=== PATIENT | female | born 1945 | race Caucasian/White ===

== ENCOUNTER → 2018-05-06 | Outpatient (CLI) | payer MEDICARE ==
[~2018-05-06] MED LIST: AMIO200T44 PO; AMLO5TAB7 PO; ATOR20TA65 PO; Atenolol PO; BENA20TA10 PO; IOHEXOL-350 50ML VIAL IV ONE; IOHEXOL-350 75 ML VIAL IV ONE; LATA7.5D OP; MULT1TAB70 PO; TIMO1DRO2 OP; WARF1TAB46 PO; WARF2.5T47 PO
== END | disposition home or self-care (01) ==
LOC: RAH 08:32
PROVIDERS: ATTEND Internal Medicine Cardiovascular Disease
DX: I73.9 Peripheral vascular disease, unspecified (principal); I87.2 Venous insufficiency (chronic) (peripheral); I70.1 Atherosclerosis of renal artery; I70.0 Atherosclerosis of aorta; J90 Pleural effusion, not elsewhere classified; K76.89 Other specified diseases of liver; M85.88 Other specified disorders of bone density and structure, other site; J98.11 Atelectasis
CPT/HCPCS: 75635; Q9967 ×3

== ENCOUNTER 2018-05-24 01:00 | Inpatient (IN) | payer MEDICARE ==
[~2018-05-24] VITALS: Ht 160 cm; Wt 56.9 kg
[~2018-05-24 01:00] MED LIST changes: -IOHEXOL-350 50ML VIAL IV ONE; -IOHEXOL-350 75 ML VIAL IV ONE
[2018-05-24] MEDS ORDERED: LIDOCAINE 1%-EPI 1:100,000 20 ML VIAL IJ ONE (01:04)
[2018-05-24] MEDS ORDERED: IOHEXOL 350 MG/ML 100ML INFUS..BTL IV ONE (01:21)
[2018-05-24 01:36] LABS: BASOPHILS % (AUTO) 0.5 % (0.0-5.0); EOSINOPHILS % (AUTO) 0.8 % (0.0-8.0); HEMATOCRIT 24.5 % (36-48); LYMPHOCYTES % (AUTO) 7.9 % (21.0-51.0); MEAN CORPUSCULAR HGB CONC 33.6 g/dL (32.0-36.0); MEAN CORPUSCULAR VOLUME 92.3 fL (79-99); MONOCYTES % (AUTO) 12.7 % (3.0-13.0); NEUTROPHILS % (AUTO) 78.1 % (40.0-77.0); PLATELET COUNT (AUTO) 245 K/uL (130-400); RED BLOOD CELL COUNT(AUTO) 2.66 MIL/uL (4.00-5.50); RED CELL DISTRIBUTION WIDTH 13.3 % (11.0-15.5); WHITE BLOOD COUNT (AUTO) 15.1 K/uL (4.8-10.8)
[2018-05-24 01:46] LABS: POTASSIUM 3.3 mmol/L (3.5-5.1)
[2018-05-24 01:50] LABS: ALBUMIN 2.3 g/dL (3.5-5.0); BILIRUBIN,TOTAL 0.2 mg/dL (0.2-1.0); TOTAL PROTEIN, SERUM 5.3 g/dL (6.0-8.3)
[2018-05-24 01:59] LABS: PARTIAL THROMBOPLASTIN TIME 59.4 SEC (26.3-35.5)
[2018-05-24 02:10] LABS: INR > 7.00 (0.85-1.15); PROTHROMBIN TIME > 63.0 SEC (9.6-11.6)
[2018-05-24] MEDS ORDERED: PHYTONADIONE 10 MG/1 ML AMP ONE (02:38)
[2018-05-24 03:43] VITALS: BP 156/71
[2018-05-24] MEDS ORDERED: ONDANSETRON HCL 4 MG/2 ML VIAL IVP PRN ×2 (04:00→13:30)
[2018-05-24] MEDS ORDERED: PROMETHAZINE/CODEINE 6.25-10MG/5ML CUP PO PRN (04:00)
[2018-05-24] MEDS ORDERED: ACETAMINOPHEN 325 MG TAB PO PRN ×2 (04:00)
[2018-05-24] MEDS ORDERED: AZITHROMYCIN 500MG+NS 250ML 250 ML IV SCH (04:00)
[2018-05-24] MEDS ORDERED: SODIUM CHLORIDE 0.9% 1000ML 1,000 ML IV SCH (04:00)
[2018-05-24] MEDS ORDERED: DIAZEPAM 5 MG TABLET PO PRN (04:00)
[2018-05-24] MEDS ORDERED: TRAZ-185 PO (04:38)
[2018-05-24] MEDS ORDERED: LIDO700A30 TD (04:38)
[2018-05-24] MEDS ORDERED: FURO20TA4 PO (04:38)
[2018-05-24 04:56] LABS: APPEARANCE,URINE Clear (CLEAR); BILIRUBIN,URINE Negative (NEGATIVE); COLOR,URINE Yellow (YELLOW); GLUCOSE, URINE (UA) Negative (NEGATIVE); KETONES,URINE Negative (NEGATIVE); LEUKOCYTE ESTERASE ,URINE Trace (NEGATIVE); NITRATE,URINE Negative (NEGATIVE); OCCULT BLOOD,URINE Negative (NEGATIVE); PH,URINE 6.5 (5.0-8.0); PROTEIN,URINE Negative (NEGATIVE); UROBILINOGEN,URINE 0.2 mg/dL (0.2-1.0)
[2018-05-24] MEDS ORDERED: MORPHINE SULFATE 2 MG/ML 1ML SYG IVP PRN (05:30)
[2018-05-24] MEDS ORDERED: ONDANSETRON HCL MDV 20ML 2 MG/ML VIAL IVP PRN (05:30)
[2018-05-24 05:44] LABS: BACTERIA,URINE Rare /HPF (None Seen); RBC,URINE None Seen /HPF (0-1)
[2018-05-24 05:45] LABS: SQUAMOUS EPITHELIAL CELL,UR 0-2 /HPF (0-2)
[2018-05-24] MEDS: LACTATED RINGERS 1000ML 1,000 ML IV SCH ×2 (05:50→14:50)
[2018-05-24] MEDS: ACETAMINOPHEN-CODEINE 300/30MG TAB PO PRN ×2 (05:51→18:18)
[2018-05-24] MEDS ORDERED: IPRATROPIUM/ALBUTEROL SULFATE 3 ML SOLUTION IH SCH (06:00)
[2018-05-24 06:42] LABS: HEMATOCRIT 31.8 % (36-48); MEAN CORPUSCULAR HEMOGLOBIN 31.6 pg (27.0-33.0); MEAN CORPUSCULAR HGB CONC 35.1 g/dL (32.0-36.0); MEAN CORPUSCULAR VOLUME 90.2 fL (79-99); PLATELET COUNT (AUTO) 190 K/uL (130-400); RED BLOOD CELL COUNT(AUTO) 3.52 MIL/uL (4.00-5.50); RED CELL DISTRIBUTION WIDTH 13.8 % (11.0-15.5); WHITE BLOOD COUNT (AUTO) 10.3 K/uL (4.8-10.8)
[2018-05-24 06:47] LABS: CREATININE 0.9 mg/dL (0.5-1.5); POTASSIUM 3.1 mmol/L (3.5-5.1)
[2018-05-24] MEDS ORDERED: WARF2.5T85 PO (06:49)
[2018-05-24] MEDS ORDERED: AMLO5TAB7 PO (06:54)
[2018-05-24] MEDS ORDERED: LATA7.5D OD (06:54)
[2018-05-24] MEDS ORDERED: ATEN50TA PO (06:54)
[2018-05-24 07:00] VITALS: BP 104/44
[2018-05-24 07:54] LABS: INR 5.96 (0.85-1.15); PROTHROMBIN TIME 60.4 SEC (9.6-11.6)
[2018-05-24] MEDS ORDERED: DEXAMETHASONE SOD PHOSPHATE 4 MG/ML 1ML VIAL IVP SCH (09:00)
[2018-05-24 11:00] VITALS: BP 110/40
[2018-05-24] MEDS: POTASSIUM CHLORIDE 20 MEQ ERTAB PO PRN ×3 (14:42→21:00)
[2018-05-24 16:00] VITALS: BP 133/39
[2018-05-24 19:42] VITALS: BP_SYST 148; BP_SYST 151; BP_DIAS 55; BP_DIAS 56
[2018-05-24] MEDS: AMLODIPINE BESYLATE 5 MG TAB PO SCH (20:59)
[2018-05-24] MEDS ORDERED: MONTELUKAST SODIUM 10 MG TAB PO SCH (21:00)
[2018-05-24 23:56] VITALS: BP 130/50
[2018-05-25] VITALS (8 sets, daily range): BP systolic 112–147; BP diastolic 48–69
[2018-05-25] MEDS: LACTATED RINGERS 1000ML 1,000 ML IV SCH ×2 (01:30→06:30)
[2018-05-25] MEDS: ACETAMINOPHEN-CODEINE 300/30MG TAB PO PRN ×2 (04:21→12:11)
[2018-05-25 06:10] LABS: CREATININE 0.7 mg/dL (0.5-1.5); POTASSIUM 3.9 mmol/L (3.5-5.1)
[2018-05-25 06:14] LABS: INR 2.53 (0.85-1.15); PROTHROMBIN TIME 26.1 SEC (9.6-11.6)
[2018-05-25] MEDS: ATENOLOL 50 MG TABLET PO SCH (08:11)
[2018-05-25] MEDS: AMIODARONE HCL 200 MG TABLET PO SCH (08:11)
[2018-05-25] MEDS: FUROSEMIDE 20 MG TABLET PO SCH (08:12)
[2018-05-25] MEDS ORDERED: BENAZEPRIL HCL 20 MG PO SCH (09:00)
[2018-05-25] MEDS: CEFTRIAXONE SODIUM 2 GM VIAL IVP SCH (12:17)
[2018-05-25] MEDS ORDERED: BENAZEPRIL HCL 10 MG TABLET PO SCH (15:47)
[2018-05-25] MEDS: FAMOTIDINE 20MG TAB 20 MG TAB PO SCH (20:56)
[2018-05-25] MEDS: AMLODIPINE BESYLATE 5 MG TAB PO SCH (20:56)
[2018-05-25] MEDS: TRAZODONE HCL 50 MG TAB PO SCH (20:56)
[2018-05-25] MEDS: LATANOPROST 2.5 ML DROPS OD SCH (20:57)
[2018-05-26] VITALS (8 sets, daily range): BP systolic 75–142; BP diastolic 45–67
[2018-05-26 03:53] LABS: BASOPHILS % (AUTO) 0.7 % (0.0-5.0); EOSINOPHILS % (AUTO) 3.2 % (0.0-8.0); HEMATOCRIT 25.9 % (36-48); LYMPHOCYTES % (AUTO) 14.5 % (21.0-51.0); MEAN CORPUSCULAR HGB CONC 34.2 g/dL (32.0-36.0); MEAN CORPUSCULAR VOLUME 90.7 fL (79-99); NEUTROPHILS % (AUTO) 63.6 % (40.0-77.0); PLATELET COUNT (AUTO) 182 K/uL (130-400); RED BLOOD CELL COUNT(AUTO) 2.86 MIL/uL (4.00-5.50); RED CELL DISTRIBUTION WIDTH 13.9 % (11.0-15.5); WHITE BLOOD COUNT (AUTO) 11.4 K/uL (4.8-10.8)
[2018-05-26 03:58] LABS: INR 1.32 (0.85-1.15); PROTHROMBIN TIME 13.8 SEC (9.6-11.6)
[2018-05-26 04:00] LABS: CREATININE 0.7 mg/dL (0.5-1.5); POTASSIUM 3.2 mmol/L (3.5-5.1)
[2018-05-26] MEDS: FAMOTIDINE 20MG TAB 20 MG TAB PO SCH ×2 (08:55→20:28)
[2018-05-26] MEDS: FUROSEMIDE 20 MG TABLET PO SCH (08:56)
[2018-05-26] MEDS: AMIODARONE HCL 200 MG TABLET PO SCH (08:56)
[2018-05-26] MEDS: ATENOLOL 50 MG TABLET PO SCH (08:57)
[2018-05-26] MEDS: LIDOCAINE 5% TOPICAL PATCH TP SCH (08:57)
[2018-05-26] MEDS: BENAZEPRIL HCL 10 MG TABLET PO SCH (08:57)
[2018-05-26] MEDS: POTASSIUM CHLORIDE 20 MEQ ERTAB PO PRN (09:02)
[2018-05-26] MEDS: TIMOLOL MALEATE 0.5% 5 ML BOTTLE OP SCH (10:25)
[2018-05-26] MEDS: CEFTRIAXONE SODIUM 2 GM VIAL IVP SCH (11:09)
[2018-05-26] MEDS: LATANOPROST 2.5 ML DROPS OD SCH (20:28)
[2018-05-26] MEDS: AMLODIPINE BESYLATE 5 MG TAB PO SCH (20:28)
[2018-05-26] MEDS: TRAZODONE HCL 50 MG TAB PO SCH (20:28)
[2018-05-27 03:40] LABS: BASOPHILS % (AUTO) 0.7 % (0.0-5.0); HEMATOCRIT 24.1 % (36-48); LYMPHOCYTES % (AUTO) 11.9 % (21.0-51.0); MEAN CORPUSCULAR HEMOGLOBIN 31.5 pg (27.0-33.0); MEAN CORPUSCULAR HGB CONC 34.5 g/dL (32.0-36.0); MEAN CORPUSCULAR VOLUME 91.2 fL (79-99); MONOCYTES % (AUTO) 15.3 % (3.0-13.0); NEUTROPHILS % (AUTO) 69.1 % (40.0-77.0); PLATELET COUNT (AUTO) 223 K/uL (130-400); RED BLOOD CELL COUNT(AUTO) 2.64 MIL/uL (4.00-5.50); RED CELL DISTRIBUTION WIDTH 13.8 % (11.0-15.5); WHITE BLOOD COUNT (AUTO) 10.8 K/uL (4.8-10.8)
[2018-05-27 03:47] LABS: CREATININE 0.7 mg/dL (0.5-1.5); POTASSIUM 3.7 mmol/L (3.5-5.1)
[2018-05-27 03:57] VITALS: BP 140/57
[2018-05-27] MEDS: POTASSIUM CHLORIDE 20 MEQ ERTAB PO PRN ×2 (04:02→06:12)
[2018-05-27 04:33] LABS: INR 1.15 (0.85-1.15)
[2018-05-27 07:40] VITALS: BP 141/57
[2018-05-27] MEDS: FAMOTIDINE 20MG TAB 20 MG TAB PO SCH ×2 (09:31→20:05)
[2018-05-27] MEDS: ATENOLOL 50 MG TABLET PO SCH (09:32)
[2018-05-27] MEDS: FUROSEMIDE 20 MG TABLET PO SCH (09:33)
[2018-05-27] MEDS: BENAZEPRIL HCL 10 MG TABLET PO SCH (09:33)
[2018-05-27] MEDS: TIMOLOL MALEATE 0.5% 5 ML BOTTLE OP SCH (09:34)
[2018-05-27] MEDS: AMIODARONE HCL 200 MG TABLET PO SCH (09:34)
[2018-05-27] MEDS: LIDOCAINE 5% TOPICAL PATCH TP SCH (09:34)
[2018-05-27 11:10] VITALS: BP 124/55
[2018-05-27] MEDS: CEFTRIAXONE SODIUM 2 GM VIAL IVP SCH (12:28)
[2018-05-27 16:40] VITALS: BP 128/50
[2018-05-27 19:00] VITALS: BP 127/50
[2018-05-27] MEDS: AMLODIPINE BESYLATE 5 MG TAB PO SCH (20:05)
[2018-05-27] MEDS: LATANOPROST 2.5 ML DROPS OD SCH (20:05)
[2018-05-27] MEDS: TRAZODONE HCL 50 MG TAB PO SCH (20:05)
[2018-05-27] MEDS: ACETAMINOPHEN-CODEINE 300/30MG TAB PO PRN (20:06)
[2018-05-27 23:00] VITALS: BP 121/51
[2018-05-28 03:00] VITALS: BP 129/54
[2018-05-28 03:58] LABS: BASOPHILS % (AUTO) 0.9 % (0.0-5.0); EOSINOPHILS % (AUTO) 5.2 % (0.0-8.0); MEAN CORPUSCULAR VOLUME 91.3 fL (79-99); NEUTROPHILS % (AUTO) 63.9 % (40.0-77.0); PLATELET COUNT (AUTO) 305 K/uL (130-400); RED BLOOD CELL COUNT(AUTO) 2.73 MIL/uL (4.00-5.50); RED CELL DISTRIBUTION WIDTH 14.2 % (11.0-15.5); WHITE BLOOD COUNT (AUTO) 9.8 K/uL (4.8-10.8)
[2018-05-28 04:04] LABS: CREATININE 0.8 mg/dL (0.5-1.5); POTASSIUM 4.1 mmol/L (3.5-5.1)
[2018-05-28 04:06] LABS: INR 1.09 (0.85-1.15); PROTHROMBIN TIME 11.4 SEC (9.6-11.6)
[2018-05-28 08:08] VITALS: BP 144/54
[2018-05-28] MEDS: TIMOLOL MALEATE 0.5% 5 ML BOTTLE OP SCH (09:28)
[2018-05-28] MEDS: LIDOCAINE 5% TOPICAL PATCH TP SCH (09:29)
[2018-05-28] MEDS: ATENOLOL 50 MG TABLET PO SCH (09:31)
[2018-05-28] MEDS: AMIODARONE HCL 200 MG TABLET PO SCH (09:31)
[2018-05-28] MEDS: FAMOTIDINE 20MG TAB 20 MG TAB PO SCH ×2 (09:32→22:52)
[2018-05-28] MEDS: FUROSEMIDE 20 MG TABLET PO SCH (09:32)
[2018-05-28] MEDS: BENAZEPRIL HCL 10 MG TABLET PO SCH (09:32)
[2018-05-28] MEDS: ACETAMINOPHEN-CODEINE 300/30MG TAB PO PRN (09:35)
[2018-05-28] MEDS: CEFTRIAXONE SODIUM 2 GM VIAL IVP SCH (12:12)
[2018-05-28 12:20] VITALS: BP 112/51
[2018-05-28 16:40] VITALS: BP 119/51
[2018-05-28 20:00] VITALS: BP 114/50
[2018-05-28] MEDS: TRAZODONE HCL 50 MG TAB PO SCH (22:52)
[2018-05-28] MEDS: AMLODIPINE BESYLATE 5 MG TAB PO SCH (22:52)
[2018-05-28] MEDS: LATANOPROST 2.5 ML DROPS OD SCH (22:52)
[2018-05-28 23:00] VITALS: BP 112/42
[2018-05-29 04:00] VITALS: BP 110/46
[2018-05-29 04:38] LABS: HEMATOCRIT 24.7 % (36-48); MEAN CORPUSCULAR HEMOGLOBIN 31.7 pg (27.0-33.0); MEAN CORPUSCULAR HGB CONC 34.6 g/dL (32.0-36.0); MEAN CORPUSCULAR VOLUME 91.8 fL (79-99); PLATELET COUNT (AUTO) 395 K/uL (130-400); RED BLOOD CELL COUNT(AUTO) 2.69 MIL/uL (4.00-5.50); RED CELL DISTRIBUTION WIDTH 14.2 % (11.0-15.5); WHITE BLOOD COUNT (AUTO) 8.5 K/uL (4.8-10.8)
[2018-05-29 04:49] LABS: ALBUMIN 1.8 g/dL (3.5-5.0); BILIRUBIN,TOTAL 0.4 mg/dL (0.2-1.0); CREATININE 0.7 mg/dL (0.5-1.5); POTASSIUM 3.9 mmol/L (3.5-5.1)
[2018-05-29 04:53] LABS: BAND NEUTROPHILS % (MANUAL) 4 % (0-2); LYMPHOCYTES % (MANUAL) 14 % (22-44); MAN.DIFF COMMENT-IMPRESSION MANUAL DIFFERENTIAL; MONOCYTES % (MANUAL) 8 % (2-9); PLATELET MORPHOLOGY COMMENT SLIGHT INCREASED; SEGMENTED NEUTROPHILS % 74 % (40-70)
[2018-05-29] MEDS ORDERED: CEFAZOLIN SODIUM 1 GM VIAL IVP PRN (05:00)
[2018-05-29 08:30] VITALS: BP 148/68
[2018-05-29 09:30] LABS: INR 1.08 (0.85-1.15); PROTHROMBIN TIME 11.3 SEC (9.6-11.6)
[2018-05-29] MEDS: AMIODARONE HCL 200 MG TABLET PO SCH (10:10)
[2018-05-29] MEDS: FUROSEMIDE 20 MG TABLET PO SCH (10:11)
[2018-05-29] MEDS: ATENOLOL 50 MG TABLET PO SCH (10:11)
[2018-05-29] MEDS: LIDOCAINE 5% TOPICAL PATCH TP SCH (10:12)
[2018-05-29] MEDS: BENAZEPRIL HCL 10 MG TABLET PO SCH (10:13)
[2018-05-29] MEDS: TIMOLOL MALEATE 0.5% 5 ML BOTTLE OP SCH (10:13)
[2018-05-29] MEDS: CEFTRIAXONE SODIUM 2 GM VIAL IVP SCH (10:27)
[2018-05-29] MEDS: FAMOTIDINE 20MG TAB 20 MG TAB PO SCH ×2 (10:27→20:40)
[2018-05-29] MEDS ORDERED: REGADENOSON 0.4 MG/5 ML PF SYG IVP SCH (10:30)
[2018-05-29 14:58] VITALS: BP 146/55
[2018-05-29 16:00] VITALS: BP 135/49
[2018-05-29] MEDS: SODIUM CHLORIDE 0.9% 1000ML 1,000 ML IV SCH (18:29)
[2018-05-29 20:13] VITALS: BP 111/42
[2018-05-29] MEDS: LATANOPROST 2.5 ML DROPS OD SCH (20:40)
[2018-05-29] MEDS: TRAZODONE HCL 50 MG TAB PO SCH (20:40)
[2018-05-29] MEDS: AMLODIPINE BESYLATE 5 MG TAB PO SCH (20:40)
[2018-05-29 23:51] VITALS: BP 103/37
[2018-05-30 03:48] LABS: EOSINOPHILS % (AUTO) 3.6 % (0.0-8.0); HEMATOCRIT 25.9 % (36-48); LYMPHOCYTES % (AUTO) 12.6 % (21.0-51.0); MEAN CORPUSCULAR HEMOGLOBIN 31.7 pg (27.0-33.0); MEAN CORPUSCULAR HGB CONC 34.8 g/dL (32.0-36.0); MEAN CORPUSCULAR VOLUME 91.2 fL (79-99); NEUTROPHILS % (AUTO) 64.8 % (40.0-77.0); PLATELET COUNT (AUTO) 513 K/uL (130-400); RED BLOOD CELL COUNT(AUTO) 2.84 MIL/uL (4.00-5.50); RED CELL DISTRIBUTION WIDTH 14.2 % (11.0-15.5); WHITE BLOOD COUNT (AUTO) 8.6 K/uL (4.8-10.8)
[2018-05-30 03:54] LABS: CREATININE 0.8 mg/dL (0.5-1.5); POTASSIUM 3.4 mmol/L (3.5-5.1)
[2018-05-30 03:55] VITALS: BP 113/38
[2018-05-30] MEDS: POTASSIUM CHLORIDE 20 MEQ ERTAB PO PRN (06:01)
[2018-05-30 07:00] VITALS: BP 130/48
[2018-05-30] MEDS: ATENOLOL 50 MG TABLET PO SCH (08:48)
[2018-05-30] MEDS: AMIODARONE HCL 200 MG TABLET PO SCH (08:48)
[2018-05-30] MEDS: BENAZEPRIL HCL 10 MG TABLET PO SCH (08:48)
[2018-05-30] MEDS: FAMOTIDINE 20MG TAB 20 MG TAB PO SCH ×2 (08:48→19:50)
[2018-05-30] MEDS: LIDOCAINE 5% TOPICAL PATCH TP SCH (08:49)
[2018-05-30] MEDS: FUROSEMIDE 20 MG TABLET PO SCH (08:50)
[2018-05-30] MEDS: TIMOLOL MALEATE 0.5% 5 ML BOTTLE OP SCH (09:06)
[2018-05-30 09:39] LABS: INR 1.04 (0.85-1.15); PROTHROMBIN TIME 10.9 SEC (9.6-11.6)
[2018-05-30 11:00] VITALS: BP 110/40
[2018-05-30] MEDS: CEFTRIAXONE SODIUM 2 GM VIAL IVP SCH (11:30)
[2018-05-30 16:00] VITALS: BP 115/44
[2018-05-30] MEDS: SODIUM CHLORIDE 0.9% 1000ML 1,000 ML IV SCH (16:20)
[2018-05-30] MEDS: AMLODIPINE BESYLATE 5 MG TAB PO SCH (19:50)
[2018-05-30] MEDS: TRAZODONE HCL 50 MG TAB PO SCH (19:50)
[2018-05-30] MEDS: LATANOPROST 2.5 ML DROPS OD SCH (19:51)
[2018-05-30 19:59] VITALS: BP 117/50
[2018-05-31] VITALS (24 sets, daily range): BP systolic 105–185; BP diastolic 43–78
[2018-05-31 03:53] LABS: HEMATOCRIT 24.1 % (36-48); MEAN CORPUSCULAR HEMOGLOBIN 31.3 pg (27.0-33.0); MEAN CORPUSCULAR HGB CONC 34.2 g/dL (32.0-36.0); MEAN CORPUSCULAR VOLUME 91.7 fL (79-99); PLATELET COUNT (AUTO) 554 K/uL (130-400); RED BLOOD CELL COUNT(AUTO) 2.63 MIL/uL (4.00-5.50); RED CELL DISTRIBUTION WIDTH 14.4 % (11.0-15.5); WHITE BLOOD COUNT (AUTO) 9.6 K/uL (4.8-10.8)
[2018-05-31 04:03] LABS: CREATININE 0.7 mg/dL (0.5-1.5); POTASSIUM 4.1 mmol/L (3.5-5.1)
[2018-05-31 04:04] LABS: INR 1.07 (0.85-1.15); PROTHROMBIN TIME 11.2 SEC (9.6-11.6)
[2018-05-31 04:39] LABS: % IRON SATURATION 17.8 % (22-44)
[2018-05-31] MEDS: SODIUM CHLORIDE 0.9% 1000ML 1,000 ML IV SCH ×2 (05:30→22:22)
[2018-05-31] MEDS ORDERED: COMPOUND IV MISC 1 EACH IVSOLN MISC PRN (08:00)
[2018-05-31] MEDS: AMIODARONE HCL 200 MG TABLET PO SCH (09:00)
[2018-05-31] MEDS: BENAZEPRIL HCL 10 MG TABLET PO SCH (09:00)
[2018-05-31] MEDS: LIDOCAINE 5% TOPICAL PATCH TP SCH (10:20)
[2018-05-31] MEDS: TIMOLOL MALEATE 0.5% 5 ML BOTTLE OP SCH (10:20)
[2018-05-31] MEDS ORDERED: LACTATED RINGERS 1000ML 1,000 ML IV ONE (11:36)
[2018-05-31] MEDS ORDERED: CEFTRIAXONE SODIUM 1 GM ONE (11:45)
[2018-05-31] MEDS: CEFTRIAXONE SODIUM 2 GM VIAL IVP SCH (11:50)
[2018-05-31] MEDS: CEFAZOLIN SODIUM 1 GM VIAL IVP PRN ×3 (11:56→17:22)
[2018-05-31] MEDS: CEFTRIAXONE SODIUM 1 GM IVP SCH (12:01)
[2018-05-31] MEDS ORDERED: SUCCINYLCHOLINE CHLORIDE 20 MG/ML 10 ML VIAL ONE (12:24)
[2018-05-31] MEDS ORDERED: LIDOCAINE PF 2% 5ML ABBOJECT ONE (12:24)
[2018-05-31] MEDS ORDERED: ROPIVACAINE 0.5% 5MG/ML 30ML IJ ONE ×3 (12:24→12:28)
[2018-05-31] MEDS ORDERED: FENTANYL CITRATE PF 50 MCG/1 ML 2ML VIAL ONE (12:24)
[2018-05-31] MEDS ORDERED: ROCURONIUM 10MG/1ML SYR 10 MG/ML ML ONE ×2 (12:25→14:25)
[2018-05-31] MEDS ORDERED: PROPOFOL 10 MG/ML 20ML VIAL IV ONE (12:25)
[2018-05-31] MEDS ORDERED: GLYCOPYRROLATE 1 MG/5 ML SYRINGE ONE (13:11)
[2018-05-31] MEDS ORDERED: EPHEDRINE SULFATE 50 MG/ML AMPULE ONE (13:16)
[2018-05-31] MEDS ORDERED: CEFAZOLIN SODIUM 1 GM VIAL IRRIG ONE (13:48)
[2018-05-31 16:16] LABS: HEMATOCRIT 29.5 % (36-48)
[2018-05-31] MEDS ORDERED: PROMETHAZINE HCL 25 MG/ML 1ML AMPULE IM PRN (17:45)
[2018-05-31] MEDS ORDERED: DiphenhydrAMINE HCL 50 MG/ML VIAL IVP PRN (17:45)
[2018-05-31] MEDS ORDERED: FERROUS FUMARATE 324 MG TABLET PO PRN (17:45)
[2018-05-31] MEDS ORDERED: KETOROLAC TROMETHAMINE 15MG/ML IV PRN (17:45)
[2018-05-31] MEDS ORDERED: DIPHENHYDRAMINE HCL 25 MG CAPSULE PO PRN (17:45)
[2018-05-31] MEDS ORDERED: HYDROCODONE/ACETAMINOPHEN 5/325 MG TAB PO PRN (17:45)
[2018-05-31] MEDS ORDERED: NEOSTIGMINE 5MG/5ML SYR IV ONE (17:53)
[2018-05-31] MEDS ORDERED: HYDRALAZINE HCL 20 MG/ML VIAL ONE (18:21)
[2018-05-31] MEDS ORDERED: MORPHINE SULFATE 4 MG/1ML SYG ONE (18:43)
[2018-05-31] MEDS ORDERED: CLONIDINE HCL 0.1 MG TABLET PO PRN (20:15)
[2018-05-31] MEDS: ATENOLOL 50 MG TABLET PO SCH (22:20)
[2018-05-31] MEDS: AMLODIPINE BESYLATE 5 MG TAB PO SCH (22:21)
[2018-05-31] MEDS: FAMOTIDINE 20MG TAB 20 MG TAB PO SCH (22:21)
[2018-05-31] MEDS: TRAZODONE HCL 50 MG TAB PO SCH (22:21)
[2018-05-31] MEDS: FUROSEMIDE 20 MG TABLET PO SCH (22:21)
[2018-05-31] MEDS: LATANOPROST 2.5 ML DROPS OD SCH (22:41)
[2018-05-31 22:44] LABS: HEMATOCRIT 29.1 % (36-48)
[2018-06-01] VITALS (8 sets, daily range): BP systolic 108–144; BP diastolic 43–66
[2018-06-01] MEDS: SODIUM CHLORIDE 0.9% 1000ML 1,000 ML IV SCH ×2 (03:38→12:03)
[2018-06-01 04:33] LABS: HEMATOCRIT 25.9 % (36-48); MEAN CORPUSCULAR HEMOGLOBIN 30.5 pg (27.0-33.0); MEAN CORPUSCULAR HGB CONC 33.6 g/dL (32.0-36.0); MEAN CORPUSCULAR VOLUME 90.9 fL (79-99); PLATELET COUNT (AUTO) 517 K/uL (130-400); RED BLOOD CELL COUNT(AUTO) 2.85 MIL/uL (4.00-5.50); RED CELL DISTRIBUTION WIDTH 14.8 % (11.0-15.5); WHITE BLOOD COUNT (AUTO) 13.6 K/uL (4.8-10.8)
[2018-06-01 04:40] LABS: CREATININE 0.7 mg/dL (0.5-1.5); POTASSIUM 4.4 mmol/L (3.5-5.1)
[2018-06-01] MEDS: HYDROCODONE/ACETAMINOPHEN 5/325 MG TAB PO PRN ×2 (06:50→14:39)
[2018-06-01] MEDS: TIMOLOL MALEATE 0.5% 5 ML BOTTLE OP SCH (08:56)
[2018-06-01] MEDS: ATENOLOL 50 MG TABLET PO SCH (09:00)
[2018-06-01] MEDS ORDERED: IRON SUCROSE COMPLEX 100 MG in SODIUM CHLORIDE 0.9% 50 ML IV SCH (09:00)
[2018-06-01] MEDS: FUROSEMIDE 20 MG TABLET PO SCH (09:01)
[2018-06-01] MEDS: FAMOTIDINE 20MG TAB 20 MG TAB PO SCH ×2 (09:02→20:38)
[2018-06-01] MEDS: BENAZEPRIL HCL 10 MG TABLET PO SCH (09:02)
[2018-06-01] MEDS: POLYETHYLENE GLYCOL 3350 17 GM POWD.PACK PO SCH (09:02)
[2018-06-01] MEDS: AMIODARONE HCL 200 MG TABLET PO SCH (09:02)
[2018-06-01] MEDS: CALCIUM CARBONATE 500 MG TABLET PO PRN ×2 (11:52→20:37)
[2018-06-01] MEDS: CEFTRIAXONE SODIUM 1 GM IVP SCH (11:52)
[2018-06-01] MEDS: PSYLLIUM SEED 1 EACH PACKET PO SCH (11:53)
[2018-06-01] MEDS: TRAZODONE HCL 50 MG TAB PO SCH (20:38)
[2018-06-01] MEDS: AMLODIPINE BESYLATE 5 MG TAB PO SCH (20:38)
[2018-06-01] MEDS: LATANOPROST 2.5 ML DROPS OD SCH (20:39)
[2018-06-01] MEDS: HONEY 1 APPL/ML TUBE TP SCH (22:00)
[2018-06-02 02:48] VITALS: BP_SYST 130; BP_SYST 133; BP_DIAS 45; BP_DIAS 63
[2018-06-02 04:42] LABS: INR 1.07 (0.85-1.15); PROTHROMBIN TIME 11.2 SEC (9.6-11.6)
[2018-06-02 06:03] LABS: APPEARANCE,URINE Clear (CLEAR); BILIRUBIN,URINE Negative (NEGATIVE); COLOR,URINE Yellow (YELLOW); GLUCOSE, URINE (UA) Negative (NEGATIVE); KETONES,URINE Negative (NEGATIVE); LEUKOCYTE ESTERASE ,URINE Small (NEGATIVE); NITRATE,URINE Negative (NEGATIVE); OCCULT BLOOD,URINE Moderate (NEGATIVE); PH,URINE 6.5 (5.0-8.0); PROTEIN,URINE POS 1+ (NEGATIVE)
[2018-06-02 06:19] LABS: BACTERIA,URINE Few /HPF (None Seen); SQUAMOUS EPITHELIAL CELL,UR 0-2 /HPF (0-2)
[2018-06-02 07:47] VITALS: BP 146/53
[2018-06-02] MEDS: TIMOLOL MALEATE 0.5% 5 ML BOTTLE OP SCH (08:49)
[2018-06-02] MEDS: ATENOLOL 50 MG TABLET PO SCH (08:49)
[2018-06-02] MEDS: AMIODARONE HCL 200 MG TABLET PO SCH (08:50)
[2018-06-02] MEDS: FAMOTIDINE 20MG TAB 20 MG TAB PO SCH ×2 (08:50→21:09)
[2018-06-02] MEDS: FUROSEMIDE 20 MG TABLET PO SCH (08:50)
[2018-06-02] MEDS: BENAZEPRIL HCL 10 MG TABLET PO SCH (08:50)
[2018-06-02] MEDS: POLYETHYLENE GLYCOL 3350 17 GM POWD.PACK PO SCH (08:50)
[2018-06-02] MEDS ORDERED: WARFARIN SODIUM 2.5 MG TAB PO SCH ×2 (10:45→16:00)
[2018-06-02 11:02] VITALS: BP 122/44
[2018-06-02 11:32] LABS: BASOPHILS % (AUTO) 0.4 % (0.0-5.0); EOSINOPHILS % (AUTO) 0.1 % (0.0-8.0); LYMPHOCYTES % (AUTO) 6.9 % (21.0-51.0); MEAN CORPUSCULAR HEMOGLOBIN 30.5 pg (27.0-33.0); MEAN CORPUSCULAR HGB CONC 33.6 g/dL (32.0-36.0); MEAN CORPUSCULAR VOLUME 90.8 fL (79-99); MONOCYTES % (AUTO) 12.7 % (3.0-13.0); NEUTROPHILS % (AUTO) 79.9 % (40.0-77.0); PLATELET COUNT (AUTO) 574 K/uL (130-400); RED BLOOD CELL COUNT(AUTO) 2.75 MIL/uL (4.00-5.50); RED CELL DISTRIBUTION WIDTH 14.9 % (11.0-15.5); WHITE BLOOD COUNT (AUTO) 19.7 K/uL (4.8-10.8)
[2018-06-02] MEDS: PSYLLIUM SEED 1 EACH PACKET PO SCH (12:00)
[2018-06-02] MEDS: CEFTRIAXONE SODIUM 1 GM IVP SCH (12:29)
[2018-06-02] MEDS: HYDROCODONE/ACETAMINOPHEN 5/325 MG TAB PO PRN ×2 (12:37→21:15)
[2018-06-02 16:36] VITALS: BP 131/49
[2018-06-02] MEDS ORDERED: BISACODYL 5 MG TABLET.DR PO PRN (17:45)
[2018-06-02] MEDS: HONEY 1 APPL/ML TUBE TP SCH (18:55)
[2018-06-02] MEDS ORDERED: CEFTRIAXONE SODIUM 1 GM IVP SCH (19:00)
[2018-06-02 19:43] LABS: CRP QUANTITATIVE 255.7 mg/L (0.00-9.0)
[2018-06-02 20:04] VITALS: BP 115/46
[2018-06-02] MEDS: APIXABAN 5 MG TABLET PO SCH (21:09)
[2018-06-02] MEDS: LATANOPROST 2.5 ML DROPS OD SCH (21:09)
[2018-06-02] MEDS: AMLODIPINE BESYLATE 5 MG TAB PO SCH (21:09)
[2018-06-02] MEDS: TRAZODONE HCL 50 MG TAB PO SCH (21:09)
[2018-06-03 00:04] VITALS: BP 109/45
[2018-06-03 04:04] VITALS: BP 134/50
[2018-06-03 04:42] LABS: INR 1.05 (0.85-1.15)
[2018-06-03 04:46] LABS: HEMATOCRIT 21.7 % (36-48); MEAN CORPUSCULAR HEMOGLOBIN 30.9 pg (27.0-33.0); MEAN CORPUSCULAR HGB CONC 34.2 g/dL (32.0-36.0); MEAN CORPUSCULAR VOLUME 90.5 fL (79-99); RED CELL DISTRIBUTION WIDTH 14.8 % (11.0-15.5); WHITE BLOOD COUNT (AUTO) 12.7 K/uL (4.8-10.8)
[2018-06-03 04:48] LABS: CREATININE 0.7 mg/dL (0.5-1.5); POTASSIUM 3.2 mmol/L (3.5-5.1)
[2018-06-03 05:10] LABS: BAND NEUTROPHILS % (MANUAL) 2 % (0-2); EOSINOPHILS % (MANUAL) 1 % (1-6); LYMPHOCYTES % (MANUAL) 17 % (22-44); MAN.DIFF COMMENT-IMPRESSION MANUAL DIFFERENTIAL; MONOCYTES % (MANUAL) 6 % (2-9); SEGMENTED NEUTROPHILS % 74 % (40-70)
[2018-06-03] MEDS: POTASSIUM CHLORIDE 20 MEQ ERTAB PO PRN ×3 (05:55→12:09)
[2018-06-03 06:57] LABS: PLATELET COUNT (AUTO) 553 K/uL (130-400)
[2018-06-03 07:44] VITALS: BP 136/51
[2018-06-03] MEDS: ATENOLOL 50 MG TABLET PO SCH (08:29)
[2018-06-03] MEDS: FAMOTIDINE 20MG TAB 20 MG TAB PO SCH ×2 (08:29→19:40)
[2018-06-03] MEDS: AMIODARONE HCL 200 MG TABLET PO SCH (08:29)
[2018-06-03] MEDS: FUROSEMIDE 20 MG TABLET PO SCH (08:29)
[2018-06-03] MEDS: CALCIUM CARBONATE 500 MG TABLET PO PRN (08:30)
[2018-06-03] MEDS: APIXABAN 5 MG TABLET PO SCH ×2 (08:30→19:40)
[2018-06-03] MEDS: POLYETHYLENE GLYCOL 3350 17 GM POWD.PACK PO SCH (08:30)
[2018-06-03] MEDS: BENAZEPRIL HCL 10 MG TABLET PO SCH (08:30)
[2018-06-03] MEDS ORDERED: ENOXAPARIN SODIUM 40 MG/0.4 ML SYRINGE SQ SCH (09:00)
[2018-06-03] MEDS: TIMOLOL MALEATE 0.5% 5 ML BOTTLE OP SCH (09:30)
[2018-06-03 11:12] VITALS: BP 113/45
[2018-06-03] MEDS: HONEY 1 APPL/ML TUBE TP SCH (11:19)
[2018-06-03] MEDS: CEFTRIAXONE SODIUM 1 GM IVP SCH (11:59)
[2018-06-03] MEDS: PSYLLIUM SEED 1 EACH PACKET PO SCH (11:59)
[2018-06-03] MEDS ORDERED: SODIUM CHLORIDE 0.9% 250 ML IV ONE (15:32)
[2018-06-03 16:23] VITALS: BP 142/53
[2018-06-03] MEDS ORDERED: BISACODYL 10 MG SUPP.RECT RC PRN (17:45)
[2018-06-03] MEDS: HYDROCODONE/ACETAMINOPHEN 5/325 MG TAB PO PRN (18:49)
[2018-06-03] MEDS: TRAZODONE HCL 50 MG TAB PO SCH (19:40)
[2018-06-03] MEDS: AMLODIPINE BESYLATE 5 MG TAB PO SCH (19:40)
[2018-06-03] MEDS: LATANOPROST 2.5 ML DROPS OD SCH (19:41)
[2018-06-03 20:01] VITALS: BP 134/55
[2018-06-04 00:25] VITALS: BP 132/63
[2018-06-04 04:31] LABS: MEAN CORPUSCULAR HEMOGLOBIN 31.6 pg (27.0-33.0); MEAN CORPUSCULAR HGB CONC 35.4 g/dL (32.0-36.0); MEAN CORPUSCULAR VOLUME 89.4 fL (79-99); PLATELET COUNT (AUTO) 581 K/uL (130-400); RED BLOOD CELL COUNT(AUTO) 3.02 MIL/uL (4.00-5.50); RED CELL DISTRIBUTION WIDTH 14.5 % (11.0-15.5); WHITE BLOOD COUNT (AUTO) 12.5 K/uL (4.8-10.8)
[2018-06-04 04:39] LABS: INR 1.02 (0.85-1.15); PROTHROMBIN TIME 10.7 SEC (9.6-11.6)
[2018-06-04 04:54] LABS: CREATININE 0.6 mg/dL (0.5-1.5); POTASSIUM 3.6 mmol/L (3.5-5.1)
[2018-06-04] MEDS: POTASSIUM CHLORIDE 20 MEQ ERTAB PO PRN ×2 (05:02→08:51)
[2018-06-04] MEDS: CALCIUM CARBONATE 500 MG TABLET PO PRN (05:02)
[2018-06-04 05:24] VITALS: BP 134/52
[2018-06-04 07:59] VITALS: BP 151/64
[2018-06-04] MEDS: TIMOLOL MALEATE 0.5% 5 ML BOTTLE OP SCH (08:48)
[2018-06-04] MEDS: APIXABAN 5 MG TABLET PO SCH (08:49)
[2018-06-04] MEDS: ATENOLOL 50 MG TABLET PO SCH (08:49)
[2018-06-04] MEDS: AMIODARONE HCL 200 MG TABLET PO SCH (08:50)
[2018-06-04] MEDS: FUROSEMIDE 20 MG TABLET PO SCH (08:50)
[2018-06-04] MEDS: BENAZEPRIL HCL 10 MG TABLET PO SCH (08:50)
[2018-06-04] MEDS: POLYETHYLENE GLYCOL 3350 17 GM POWD.PACK PO SCH (08:50)
[2018-06-04] MEDS: FAMOTIDINE 20MG TAB 20 MG TAB PO SCH (08:50)
[2018-06-04] MEDS: HONEY 1 APPL/ML TUBE TP SCH (09:00)
[2018-06-04 11:24] VITALS: BP 146/60
[2018-06-04] MEDS: CEFTRIAXONE SODIUM 1 GM IVP SCH (11:53)
[2018-06-04] MEDS: PSYLLIUM SEED 1 EACH PACKET PO SCH (11:53)
[2018-06-04 16:28] VITALS: BP 148/67
[2018-06-04 19:37] VITALS: BP 134/54
[2018-06-05 00:11] VITALS: BP 104/50
[2018-06-05 00:12] VITALS: BP 140/55
== END 2018-06-05 00:15 | DRG 480 ==
LOC: EDH 01:00 → EDHIP 02:59 → 2AH 03:47 → 4AH 05-31 17:56
PROVIDERS: ADMIT Surgery; ATTEND Surgery
PROC: 0HQ1XZZ Repair Face Skin, External Approach (ICD-10-PCS; 2018-05-31)
PROC: 0QS704Z Reposition Left Upper Femur with Internal Fixation Device, Open Approach (ICD-10-PCS; principal; 2018-05-31 12:27)
PROC: 30233N1 Transfusion of Nonautologous Red Blood Cells into Peripheral Vein, Percutaneous Approach (ICD-10-PCS; 2018-05-31 12:27)
DX: M97.02XA Periprosthetic fracture around internal prosthetic left hip joint, initial encounter (principal); I60.9 Nontraumatic subarachnoid hemorrhage, unspecified; L97.429 Non-pressure chronic ulcer of left heel and midfoot with unspecified severity; E87.1 Hypo-osmolality and hyponatremia; E44.1 Mild protein-calorie malnutrition; D68.59 Other primary thrombophilia; I69.354 Hemiplegia and hemiparesis following cerebral infarction affecting left non-dominant side; S01.01XA Laceration without foreign body of scalp, initial encounter; I48.0 Paroxysmal atrial fibrillation; Z79.01 Long term (current) use of anticoagulants; I10 Essential (primary) hypertension; D50.0 Iron deficiency anemia secondary to blood loss (chronic); W19.XXXA Unspecified fall, initial encounter; E87.6 Hypokalemia; E78.5 Hyperlipidemia, unspecified; D72.829 Elevated white blood cell count, unspecified; F03.90 Unspecified dementia, unspecified severity, without behavioral disturbance, psychotic disturbance, mood disturbance, and anxiety; G47.00 Insomnia, unspecified; G89.29 Other chronic pain; I35.0 Nonrheumatic aortic (valve) stenosis; I44.0 Atrioventricular block, first degree; I65.23 Occlusion and stenosis of bilateral carotid arteries; I73.9 Peripheral vascular disease, unspecified; K59.00 Constipation, unspecified; L97.529 Non-pressure chronic ulcer of other part of left foot with unspecified severity; X58.XXXA Exposure to other specified factors, initial encounter; Z96.642 Presence of left artificial hip joint; Z68.22 Body mass index [BMI] 22.0-22.9, adult; Z91.041 Radiographic dye allergy status; Y93.89 Activity, other specified; Y92.89 Other specified places as the place of occurrence of the external cause; Y99.8 Other external cause status; Z83.3 Family history of diabetes mellitus; Z82.5 Family history of asthma and other chronic lower respiratory diseases; Z82.49 Family history of ischemic heart disease and other diseases of the circulatory system; Z82.3 Family history of stroke; Z82.0 Family history of epilepsy and other diseases of the nervous system
CPT/HCPCS: 36415; 36430; 70450; 71250; 72125; 73502; 73552; 74176; 76000; 78452; 80048; 80053; 80339; 81001; 83540; 83550; 83605; 85014; 85018; 85025; 85027; 85610; 85730; 86140; 86850; 86900; 86901; 86922; 87040; 87088; 93005; 93017; 93306; 96374; 97039; 99291; A4218; A9500; G0390; G0480; J0330; J0360; J0690; J0696; J1756; J2001; J2270; J2704; J2710; J2785; J2795; J3010; J3430; J3490; J7030; J7120; P9016; Q9967

== ENCOUNTER → 2018-06-17 | Outpatient (CLI) | payer MEDICARE ==
[~2018-06-17] MED LIST changes: +ATEN50TA PO; -ATOR20TA65 PO; -Atenolol PO; +FURO20TA4 PO; +LATA7.5D OD; -LATA7.5D OP; +LIDO700A30 TD; -MULT1TAB70 PO; +TRAZ-185 PO; -WARF1TAB46 PO; -WARF2.5T47 PO; +WARF2.5T85 PO
[2018-06-17 08:55] LABS: BASOPHILS % (AUTO) 0.1 % (0.0-5.0); EOSINOPHILS % (AUTO) 0.3 % (0.0-8.0); HEMATOCRIT 34.4 % (36-48); LYMPHOCYTES % (AUTO) 10.1 % (21.0-51.0); MEAN CORPUSCULAR HEMOGLOBIN 31.1 pg (27.0-33.0); MEAN CORPUSCULAR HGB CONC 33.8 g/dL (32.0-36.0); MEAN CORPUSCULAR VOLUME 91.8 fL (79-99); MONOCYTES % (AUTO) 1.5 % (3.0-13.0); RED BLOOD CELL COUNT(AUTO) 3.75 MIL/uL (4.00-5.50); RED CELL DISTRIBUTION WIDTH 14.6 % (11.0-15.5); WHITE BLOOD COUNT (AUTO) 8.1 K/uL (4.8-10.8)
[2018-06-17 09:02] LABS: CREATININE 0.6 mg/dL (0.5-1.5); POTASSIUM 3.9 mmol/L (3.5-5.1)
[2018-06-17 09:10] LABS: INR 1.09 (0.85-1.15); PARTIAL THROMBOPLASTIN TIME 32.4 SEC (26.3-35.5); PROTHROMBIN TIME 11.4 SEC (9.6-11.6)
[2018-06-17 09:38] LABS: APPEARANCE,URINE CLEAR (CLEAR); BILIRUBIN,URINE NEGATIVE (NEGATIVE); COLOR,URINE YELLOW (YELLOW); GLUCOSE, URINE (UA) NEGATIVE (NEGATIVE); KETONES,URINE NEGATIVE (NEGATIVE); LEUKOCYTE ESTERASE ,URINE NEGATIVE (NEGATIVE); NITRATE,URINE NEGATIVE (NEGATIVE); OCCULT BLOOD,URINE NEGATIVE (NEGATIVE); PROTEIN,URINE NEGATIVE (NEGATIVE); UROBILINOGEN,URINE 0.2 mg/dL (0.2-1.0)
[2018-06-17 09:40] LABS: PLATELET COUNT (AUTO) 829 K/uL (130-400)
== END | disposition home or self-care (01) ==
LOC: EDSTATUS 08:00 → DAH 10:00
PROVIDERS: ATTEND Internal Medicine Cardiovascular Disease
CPT/HCPCS: 36415; 80048; 81003; 85025; 85610; 85730; 93005

== ENCOUNTER 2018-09-24 06:00 | Day surgery (SDC) | payer MEDICARE ==
[2018-09-20 09:12] VITALS: BP 156/79
[2018-09-20 10:46] LABS: APPEARANCE,URINE SLIGHTLY CLOUDY (CLEAR); BILIRUBIN,URINE Negative (NEGATIVE); COLOR,URINE Yellow (YELLOW); GLUCOSE, URINE (UA) Negative (NEGATIVE); KETONES,URINE Negative (NEGATIVE); LEUKOCYTE ESTERASE ,URINE Large (NEGATIVE); NITRATE,URINE Negative (NEGATIVE); OCCULT BLOOD,URINE Negative (NEGATIVE); PH,URINE 7.5 (5.0-8.0); PROTEIN,URINE Negative (NEGATIVE); UROBILINOGEN,URINE 0.2 mg/dL (0.2-1.0)
[2018-09-20 10:52] LABS: BACTERIA,URINE Rare /HPF (None Seen); RBC,URINE None Seen /HPF (0-1); SQUAMOUS EPITHELIAL CELL,UR Few /HPF (0-2)
--- NOTE | 2018-09-23 13:26 | NUR ---
ABNORMAL LABS AND CHEST XRAY REPORTED ABNORMAL LABS AND CHEST XRAY TO FELIPE GOETZ FOR DR. SELF. NO NEW ORDERS.
[~2018-09-24] VITALS: Ht 162.6 cm; Wt 49.9 kg
[2018-09-24] VITALS (27 sets, daily range): BP systolic 108–153; BP diastolic 34–67
[~2018-09-24 06:00] MED LIST changes: -AMLO5TAB7 PO; +AMLO5TAB9 PO; +APIX5TAB PO; +ATOR20TA65 PO; +BENA20TA77 PO; +CLON0.1T PO; +CLOP75TA14 PO; +FAMO20TA8 PO; +FURO-152 PO; -FURO20TA4 PO; -LIDO700A30 TD; +MAGN400O17 PO; +ONDA4TAB4 PO; -TIMO1DRO2 OP; +TRAM50TA4 PO; -TRAZ-185 PO; -WARF2.5T85 PO
[2018-09-24] MEDS ORDERED: DiphenhydrAMINE HCL 50 MG/ML VIAL ONE (07:04)
[2018-09-24] MEDS ORDERED: METHYLPREDNISOLONE SOD SUCC 125MG/2ML VIAL ONE (07:05)
[2018-09-24] MEDS ORDERED: SODIUM BICARB 50MEQ 50ML VIAL ONE (07:11)
[2018-09-24] MEDS ORDERED: NITROGLYCERIN 5 MG/ML 10 ML VIAL IV ONE (07:11)
[2018-09-24] MEDS ORDERED: HEPARIN SODIUM 1000UNIT/ML 10ML VIAL ONE (07:11)
[2018-09-24] MEDS ORDERED: IOHEXOL 350 MG/ML 100ML INFUS..BTL IV ONE (07:11)
[2018-09-24] MEDS ORDERED: LIDOCAINE HCL 2% 20ML ONE (07:11)
[2018-09-24] MEDS ORDERED: IOHEXOL-350 50ML VIAL IV ONE (07:11)
[2018-09-24] MEDS ORDERED: SODIUM CHLORIDE 0.9% 1000ML 1,000 ML IV ONE (07:43)
[2018-09-24] MEDS ORDERED: IODIXANOL 320 MG/ML 100 ML VIAL ONE (07:44)
[2018-09-24] MEDS ORDERED: FAMOTIDINE/PF 20 MG/2 ML VIAL IV ONE (07:48)
[2018-09-24] MEDS ORDERED: MEPERIDINE-PF 25 MG/ML SYG ONE (07:50)
[2018-09-24] MEDS ORDERED: MIDAZOLAM HCL 1 MG/ML 2ML VIAL ONE (07:51)
[2018-09-24] MEDS ORDERED: SODIUM CHLORIDE 0.9% 1000ML 1,000 ML IV SCH (09:19)
--- NOTE | 2018-09-24 13:15 | NUR ---
REPORT REPORT GIVEN TO SWEETIE CORTES
[2018-09-24] MEDS ORDERED: ATROPINE SULFATE 0.1 MG/ML 10 ML SYG IVP ONE (13:17)
--- NOTE | 2018-09-24 17:30 | NUR ---
PT TOLERATED PROCEDURE WELL, NO C/O PAIN TO RT ARM, NO BLEEDING OR HEMATOMA TO RT A/C, PT DOES HAVE A BRUISE, INSTRUCTED PT TO KEEP PRESSURE DRESSING ON UNTIL TOMORROW TO SITE, AND BEGIN ELIQUIS TOMORROW INSTRUCTED BY MD. POST CARE INSTRUCTIONS GIVEN TO PT AND , BOTH VERBALIZED UNDERSTANDING, PT ASSISTED TO WHEELCHAIR AND DRESSED, PT DRIVEN HOME BY .
== END 2018-09-24 17:30 | disposition home or self-care (01) ==
LOC: DAH 06:00
PROVIDERS: ATTEND Internal Medicine Cardiovascular Disease
DX: I70.218 Atherosclerosis of native arteries of extremities with intermittent claudication, other extremity (principal); I70.213 Atherosclerosis of native arteries of extremities with intermittent claudication, bilateral legs; I70.0 Atherosclerosis of aorta; L97.419 Non-pressure chronic ulcer of right heel and midfoot with unspecified severity; M41.9 Scoliosis, unspecified; Z98.890 Other specified postprocedural states; Z79.899 Other long term (current) drug therapy; I65.21 Occlusion and stenosis of right carotid artery; I70.1 Atherosclerosis of renal artery
CPT/HCPCS: 36415; 37221; 37223; 71045; 75625; 75716; 81001; 85347 ×3; 93005; A4606; C1725; C1769; C1874 ×2; C1887; C1893; C1894 ×2; J1200; J1644 ×3; J2175; J2250; J2930; J3490 ×4; J7030; Q9967 ×2; 99156; 99157; J0461

== ENCOUNTER → 2019-03-11 | Outpatient (CLI) | payer MEDICARE | END | disposition home or self-care (01) | LOC: SHCH 09:30 | PROVIDERS: ATTEND Internal Medicine Cardiovascular Disease | DX: I65.23 Occlusion and stenosis of bilateral carotid arteries (principal) | CPT/HCPCS: 93880 ==